=== PATIENT | female | born 1940 | race Caucasian/White ===

== ENCOUNTER 2023-10-20 07:46 | Emergency (ER) | payer OTHER, SELFPAY ==
[2023-10-20 07:55] VITALS: BP 151/75
[2023-10-20 08:43] VITALS: BP 164/74
--- NOTE | 2023-10-20 09:08 | ED.GENMED ---
History of Present Illness
General
Chief Complaint: Fall
Source: patient
Time Seen by Provider: 10/20/23 08:32
History of Present Illness
History of Present Illness:
83-year-old female with past medical history of hypertension, hyperlipidemia, previous colon cancer presenting to the emergency department for evaluation after she had an accidental fall Thursday evening stating she tripped and fell into the wall
injuring the left side of her head/face and her left middle finger. Patient came to the ER today more so because she noted swelling and redness as well as some drainage to the abrasion sustained on her left middle finger and was unable to get her
ring off of the finger. She denies any weakness or numbness to the finger, fevers, chills, headaches, visual changes or any other concerns. Patient does take a daily 81 mg aspirin. Tetanus vaccine is up-to-date.
Past History
Past History
ED Past Medical History: Cancer, HTN and Hypercholesterolemia
ED Past Surgical History: Bowel resection, Cholecystectomy and Orthopedic (bilateral knee replacement)
Social History
Tobacco: Non-smoker
Alcohol: None
Drug: None
Personal:
Living: with family
Review of Systems
Review of Systems
All Other Systems: ROS reviewed and negative except as documented in HPI and ROS
Phy Exam
Physical Exam
Physical Exam:
GENERAL: Alert , in no apparent distress head:
Significant ecchymosis to the left frontotemporal region of the scalp, there is also periorbital ecchymosis bilaterally with some mild swelling to the inferior orbit on the left
EYE: conjunctiva clear, pupils 3 mm bilateral
NECK: Supple, no midline tenderness
ENT: o/p clr, mmm.
CARDIAC: Regular rate and rhythm
LUNGS: Clear breath sounds bilaterally, no acute respiratory distress, no wheezes/rales/rhonchi
NEUROLOGICAL: Alert and oriented x 3
SKIN: Warm and dry, skin flap over the dorsal aspect of the left middle finger at the level of the PIP joint. There is moderate swelling over this area and redness that tracks up towards the MCP joint. Significant swelling noted with inability to
remove patient's ring despite multiple attempts
MUSCULOSKELETAL: well perfused.
PSYCH: Normal and appropriate interaction.
Scores
Heart Failure Risk
Heart Failure Risk Score: Not Applicable
Heart Score for Chest Pain Patients
STEMI patient?: Not applicable
Withdrawal Assessment of Alcohol
Withdrawal Assessment Completed?: Not applicable
Course
Orders/Labs/Results
Orders:
Orders
10/20/23 08:57
CT Facial Bones W/o Iv Contras Urgent
Comment:
Reason For Exam: fall thursday, b/l periorbital ecchymosis
CT Head W/o Iv Contrast Urgent
Comment:
Reason For Exam: fall thursday, left frontotemporal ecchymosis
Vital Signs
Initial and Last Documented VS:
Initial Vital Signs
Temp Pulse Resp BP Pulse Ox
98.5 F 65 20 151/75 97
10/20/23 07:55 10/20/23 07:55 10/20/23 07:55 10/20/23 07:55 10/20/23 07:55
Last Documented Vital Signs
Temp Pulse Resp BP Pulse Ox
98.5 F 62 16 145/54 95
10/20/23 07:55 10/20/23 10:59 10/20/23 10:59 10/20/23 10:59 10/20/23 10:59
Procedures
Ring removal
Ring removed with: ring cutters
Is finger swollen distally?: No
Distal sensation: intact to touch
Distal capillary refill: brisk
MDM/Problems Addressed
Differential Diagnosis Includes:
Scalp contusion, facial fracture, intracranial bleeding, left ring finger cellulitis versus inflammatory changes
MDM/Problems Addressed:
83-year-old female presenting to the emergency department for evaluation of an accidental fall resulting in left cranial ecchymosis and facial ecchymosis. Secondary injury of skin flap/abrasion and possible infection versus inflammatory changes.
Unable to remove ring with lubricant and gentle pressure so a ring cutter and forceps was used to remove the ring. Digit was well-perfused and neurovascularly intact. Patient declining x-ray imaging which I think is reasonable given she has full
range of motion of the digit without much pain. There is a questionable cellulitis so we will trial an antibiotic for a few days. CT of the head and facial bones ordered.
*Radiology
Radiology exam reviewed: radiology read reviewed
*Pulse Oximetry
Patient hypoxic: no
*Critical Care Note
Total Time (30-74mins, 75-104mins- exclusive of procedures): Not Applicable
Patient Management
Escalation/DeEscalation of care consider admission/obs:
CTs without evidence for any acute emergent pathologies. Contusions noted. Patient stable for discharge home and outpatient management. Aware of return precautions emergency room.
ED Attending Note
-
Portions of this chart may have been created with voice recognition software.� Occasional wrong word or��sound alike� substitutions may have occurred due to the inherent limitations of voice recognition software.
Discharge Plan
Departure
Patient Disposition: Home (Routine Discharge)
Date of Disposition: 10/20/23
Time of Disposition: 11:20
Patient with high blood pressure during this ER visit?: Yes
Discharge Problem:
Contusion of scalp, Ring or other jewelry causing external constriction, initial encounter, Cellulitis of left middle finger
Instructions: Contusion (DC)
Prescriptions:
New
cephalexin 500 mg tablet
500 mg PO BID 7 Days Qty: 14 0RF
No Action
hydrocodone-acetaminophen 1 TABLET tablet
1 tab PO Q4HPRN PRN (Reason: pain) Qty: 12 0RF
clotrimazole 10 MG alona
10 mg PO TIDPRN PRN (Reason: oral thrush)
loperamide 2 MG capsule
2 mg PO DAILY
cetirizine 10 MG tablet
10 mg PO DAILYPRN PRN (Reason: allergies)
Patient Comments:
08/08/2020: alternates w/ Claritin and Fransisca
meloxicam [Mobic] 15 MG tablet
15 mg PO TIDPRN PRN (Reason: muscle spasm)
pyridoxine (vitamin B6) [Vitamin B-6] 25 MG tablet
25 mg PO DAILY
simvastatin 10 MG tablet
10 mg PO DAILY
cyanocobalamin (vitamin B-12) 1,000 MCG tablet
1,000 mcg PO MOWEFRSA
fexofenadine [Fransisca] 180 MG tablet
180 mg PO DAILYPRN PRN (Reason: allergies)
Patient Comments:
08/08/2020: alternates w/ Claritin and Zyrtec
omeprazole 40 MG capsule,delayed release(DR/EC)
40 mg PO DAILY
clobetasol 60 GM gel
1 applic MM DAILYPRN PRN (Reason: mouth)
losartan 25 MG tablet
25 mg PO DAILY
aspirin 81 MG tablet,chewable
81 mg PO DAILY
timolol maleate 1 DROP drops
1 drp LEFT EYE BID
timolol maleate 1 DROP drops
1 drp RIGHT EYE DAILY
colestipol [Colestid] 1 GM tablet
1 gm PO BID
loratadine 10 MG tablet
10 mg PO DAILYPRN PRN (Reason: allergies)
Patient Comments:
08/08/2020: alternates w/ Zyrtec and Fransisca
carboxymethylcellulose sodium [TheraTears] 1 EACH dropperette
1 drp BOTH EYES QID
calcium carbonate-vitamin D3 [Oyster Shell Calcium-Vit D3] 500 MG tablet
1 tab PO DAILY
fluoride (sodium) [PreviDent 5000 Ortho Defense] 100 ML paste
1 applic dental BIDPRN PRN (Reason: dental care)
cholecalciferol (vitamin D3) 1,000 UNITS tablet
1,000 units PO DAILY
melatonin 5 MG tablet
5 mg PO HS
tafluprost (PF) [Zioptan (PF)] 1 EACH dropperette
1 drp BOTH EYES HS
multivitamin with folic acid [Tab-A-Charmaine] 1 TABLET tablet
1 tab PO DAILY
vit C,C-Fo-dlxfm-lutein-zeaxan [PreserVision AREDS-2] 1 EACH capsule
1 ea PO BID
Res-Q
1,250 mg PO BID
Referrals:
Pepito Thompson MD [Family Provider] -
Interventions
Interventions:
*Risk Screen - Suicide Last Done: 10/20/23 07:55
*General Assessment Last Done: 10/20/23 07:55
*Neglect/Abuse Screening Last Done: 10/20/23 07:55
ED- Fall Risk Assessment Last Done: 10/20/23 11:34
*ED COVID-19 Vaccine History Last Done: 10/20/23 08:41
*Nursing Disposition Last Done: 10/20/23 11:34
ED-Musculoskeletal Assessment Last Done: 10/20/23 08:42
ED- Neurological Assessment Last Done: 10/20/23 08:42
ED-Skin Assessment Last Done: 10/20/23 08:42
Discharge Date and Time
Discharge Date/Time: 10/20/23 11:35
Print Language: GREENLANDIC
[2023-10-20 10:59] VITALS: BP 145/54
== END 2023-10-20 11:35 | disposition home or self-care (01) ==
LOC: EMR 07:46
PROVIDERS: EMERGENCY PHYSICIAN Emergency Medicine; FAMILY PHYSICIAN Family Medicine
DX: S00.03XA Contusion of scalp, initial encounter (principal); S00.12XA Contusion of left eyelid and periocular area, initial encounter; S00.11XA Contusion of right eyelid and periocular area, initial encounter; L03.012 Cellulitis of left finger; W49.04XA Ring or other jewelry causing external constriction, initial encounter; W01.198A Fall on same level from slipping, tripping and stumbling with subsequent striking against other object, initial encounter; I10 Essential (primary) hypertension; E78.00 Pure hypercholesterolemia, unspecified; Z96.653 Presence of artificial knee joint, bilateral; Z79.82 Long term (current) use of aspirin; Z85.038 Personal history of other malignant neoplasm of large intestine; Z90.49 Acquired absence of other specified parts of digestive tract; Z98.0 Intestinal bypass and anastomosis status; Z88.8 Allergy status to other drugs, medicaments and biological substances; Z91.048 Other nonmedicinal substance allergy status
CPT/HCPCS: 99284; 70450; 70486